=== PATIENT | male | born 1980 | race Caucasian/White ===

== ENCOUNTER → 2017-10-28 | Outpatient (CLI) | payer BC ==
[2017-10-28 07:22] LABS: BASOPHILS % 0.3 % (0.0-2.0); EOSINOPHILS % 3.5 % (0.0-5.0); HEMATOCRIT. 39.1 % (42.0-52.0); HEMOGLOBIN. 12.8 g/dL (14.0-18.0); LYMPHOCYTES % 27.7 % (20.0-50.0); MEAN CORPUSCULAR HEMOGLOBIN 21.7 pg (28.0-32.0); MEAN CORPUSCULAR VOLUME 66.4 fL (80.0-94.0); MEAN PLATELET VOLUME 9.1 fl (7.4-10.4); MONOCYTES % 7.2 % (2.0-8.0); NEUTROPHILS % 61.3 % (40.0-76.0); PLATELET 194 x1000/uL (130-400); RED BLOOD CELL COUNT 5.89 mill/uL (4.7-6.1); RED CELL DISTRIBUTION WIDTH 17.3 % (11.6-14.6)
[2017-10-28 07:56] LABS: CHLORIDE 105 mEq/L (98-107)
[2017-10-28 08:08] LABS: CARBON DIOXIDE 26 mEq/L (21-32); HDL CHOLESTEROL 35 mg/dL (40-59); LDL CHOLESTEROL 88 mg/dL (5-100); TOTAL IRON BINDING CAPACITY 406 ug/dL (250-450)
[2017-10-28 10:50] LABS: VITAMIN B12 SERUM 301 pg/mL (211-911)
[2017-10-28 11:03] LABS: PROSTRATE SPECIFIC AG TOTAL 1.01 ng/mL (0.0-4.0)
[2017-10-28 12:01] LABS: FERRITIN < 5 ng/mL (22-322)
[2017-10-29 16:04] LABS: PLATELET ESTIMATE NORMAL
== END | disposition home or self-care (01) ==
LOC: LAB 07:02
PROVIDERS: ATTEND Internal Medicine Geriatric Medicine
DX: Z00.01 Encounter for general adult medical examination with abnormal findings (principal)
CPT/HCPCS: 36415; 80053; 80061; 82306; 82607; 82728; 82746; 83036; 83540; 83550; 84153; 84443; 85025; 86592

== ENCOUNTER → 2020-05-14 | Outpatient (CLI) | payer BC ==
[2020-05-14 16:22] LABS: BASOPHILS % 1.2 % (0.0-2.0); EOSINOPHILS % 2.9 % (0.0-5.0); HEMATOCRIT. 40.3 % (42.0-52.0); HEMOGLOBIN. 13.3 g/dL (14.0-18.0); MEAN CORPUSCULAR HEMOGLOBIN 22.7 pg (28.0-32.0); MEAN CORPUSCULAR VOLUME 68.9 fL (80.0-94.0); MEAN PLATELET VOLUME 9.8 fl (7.4-10.4); MONOCYTES % 7.4 % (2.0-8.0); NEUTROPHILS % 66.5 % (40.0-76.0); PLATELET 222 x1000/uL (130-400); RED BLOOD CELL COUNT 5.86 mill/uL (4.7-6.1); RED CELL DISTRIBUTION WIDTH 17.9 % (11.6-14.6)
[2020-05-14 16:33] LABS: CLARITY URINE CLEAR (CLEAR); COLOR URINE YELLOW (YELLOW); KETONES URINE NEGATIVE (NEGATIVE); LEUKOCYTE ESTERASE URINE NEGATIVE (NEGATIVE); NITRITE URINE NEGATIVE (NEGATIVE); OCCULT BLOOD URINE NEGATIVE (NEGATIVE); PH URINE 6.5 (4.5-8.0); PROTEIN URINE NEGATIVE (NEGATIVE); SPECIFIC GRAVITY URINE 1.018 (1.005-1.030)
[2020-05-14 16:45] LABS: PLATELET ESTIMATE NORMAL
[2020-05-14 16:55] LABS: CHLORIDE 106 mEq/L (98-107)
[2020-05-14 17:01] LABS: TOTAL IRON BINDING CAPACITY 420 ug/dL (250-450)
[2020-05-14 17:03] LABS: HDL CHOLESTEROL 31 mg/dL (40-59)
[2020-05-14 17:04] LABS: LDL CHOLESTEROL 83 mg/dL (5-100)
[2020-05-14 17:14] LABS: FOLIC ACID (FOLATE) SERUM 14.2 ng/mL (>5.38)
== END | disposition home or self-care (01) ==
LOC: LAB 15:36
PROVIDERS: ATTEND Internal Medicine Geriatric Medicine
DX: Z00.01 Encounter for general adult medical examination with abnormal findings (principal); E11.40 Type 2 diabetes mellitus with diabetic neuropathy, unspecified; I10 Essential (primary) hypertension; E66.9 Obesity, unspecified; D50.9 Iron deficiency anemia, unspecified; N39.0 Urinary tract infection, site not specified; Z11.59 Encounter for screening for other viral diseases
CPT/HCPCS: 36415; 80053; 80061; 81003; 82306; 82607; 82728; 82746; 83036; 83540; 83550; 84153; 84443; 85025; 86592; G0103

== ENCOUNTER → 2020-05-30 | Outpatient (CLI) | payer BC | END | disposition home or self-care (01) | LOC: CARD 07:12 | PROVIDERS: ATTEND Internal Medicine Geriatric Medicine | DX: I10 Essential (primary) hypertension (principal); R60.9 Edema, unspecified | CPT/HCPCS: 93306 ==

== ENCOUNTER 2020-09-15 08:27 | Day surgery (SDC) | payer BC ==
[~2020-09-15] VITALS: Ht 172.7 cm; Wt 163.3 kg
[~2020-09-15 08:27] MED LIST: OLME1TAB82 PO
[2020-09-15] MEDS ORDERED: LACTATED RINGERS 1,000 ML IV SCH (09:00)
[2020-09-15 09:24] LABS: EOSINOPHILS % 3.3 % (0.0-5.0); HEMATOCRIT. 39.9 % (42.0-52.0); HEMOGLOBIN. 13.2 g/dL (14.0-18.0); LYMPHOCYTES % 28.6 % (20.0-50.0); MEAN CORPUSCULAR HEMOGLOBIN 23.6 pg (28.0-32.0); MEAN CORPUSCULAR VOLUME 71.3 fL (80.0-94.0); MEAN PLATELET VOLUME 9.9 fl (7.4-10.4); MONOCYTES % 6.6 % (2.0-8.0); NEUTROPHILS % 60.5 % (40.0-76.0); PLATELET 197 x1000/uL (130-400); RED BLOOD CELL COUNT 5.59 mill/uL (4.7-6.1); RED CELL DISTRIBUTION WIDTH 18.4 % (11.6-14.6)
[2020-09-15 09:55] LABS: CHLORIDE 114 mEq/L (98-107)
[2020-09-15] MEDS ORDERED: MIDAZOLAM HCL 5 MG/5 ML VIAL ONE (10:06)
[2020-09-15] MEDS ORDERED: LIDOCAINE HCL/PF 1% 10 MG/ML 5ML VIAL ONE (10:07)
[2020-09-15] MEDS ORDERED: PROPOFOL 10MG/ML 100ML 100 ML IV ONE (10:08)
[2020-09-15] MEDS ORDERED: PROPOFOL 200MG/20ML VIAL IV ONE (10:55)
[2020-09-15] MEDS ORDERED: KETAMINE HCL 50 MG/ML 10ML ONE (11:13)
== END 2020-09-15 12:50 | disposition home or self-care (01) ==
LOC: OR 08:27
PROVIDERS: ATTEND Internal Medicine Gastroenterology
DX: D50.9 Iron deficiency anemia, unspecified (principal); K44.9 Diaphragmatic hernia without obstruction or gangrene; K21.00 Gastro-esophageal reflux disease with esophagitis, without bleeding; K62.1 Rectal polyp; K29.50 Unspecified chronic gastritis without bleeding; K31.89 Other diseases of stomach and duodenum; K63.89 Other specified diseases of intestine; I10 Essential (primary) hypertension; Z87.891 Personal history of nicotine dependence; Z79.899 Other long term (current) drug therapy; Z98.84 Bariatric surgery status; Z98.890 Other specified postprocedural states
CPT/HCPCS: 36415; 43239; 45380; 80048; 85025; 88305; 88313; 93005; J2250; J2704; J3490; 88312

== ENCOUNTER → 2023-12-07 | Outpatient (CLI) | payer BC ==
[~2023-12-07] MED LIST changes: -OLME1TAB82 PO; +OLME1TAB88 PO
[2023-12-07 09:52] LABS: BASOPHILS % 1.2 % (0.0-2.0); EOSINOPHILS % 3.2 % (0.0-5.0); HEMATOCRIT. 36.8 % (42.0-52.0); HEMOGLOBIN. 11.6 g/dL (14.0-18.0); LYMPHOCYTES % 27.8 % (20.0-50.0); MEAN CORPUSCULAR HEMOGLOBIN 21.2 pg (28.0-32.0); MEAN CORPUSCULAR HGB CONC 31.4 g/dL (31.0-37.0); MEAN CORPUSCULAR VOLUME 67.5 fL (80.0-94.0); MEAN PLATELET VOLUME 9.4 fl (7.4-10.4); MONOCYTES % 6.5 % (2.0-8.0); NEUTROPHILS % 61.3 % (40.0-76.0); PLATELET 186 x1000/uL (130-400); RED BLOOD CELL COUNT 5.46 mill/uL (4.7-6.1); RED CELL DISTRIBUTION WIDTH 17.7 % (11.6-14.6); WHITE BLOOD COUNT 5.7 x1000/uL (4.5-11.0)
[2023-12-07 09:56] LABS: ADD RBC MORPHOLOGY YES; DIFFERENTIAL COMMENT 1
[2023-12-07 10:04] LABS: ALANINE AMINOTRANSFERASE 20 IU/L (10-49); ALBUMIN 4.1 g/dL (3.2-4.8); ASPARTATE AMINOTRANSFERASE 18 IU/L (<34); BILIRUBIN TOTAL 0.4 mg/dL (0.1-1.0); CALCIUM 8.7 mg/dL (8.7-10.4); CARBON DIOXIDE 30 mEq/L (21-32); CHLORIDE 103 mEq/L (98-107); CHOLESTEROL 99 mg/dL (<200); CREATININE 0.7 mg/dL (0.6-1.3); GLUCOSE 211 mg/dL (70-105); HDL CHOLESTEROL 21 mg/dL (>55); LDL CHOLESTEROL 81 mg/dL (5-100); POTASSIUM 3.9 mEq/L (3.5-5.1); PROTEIN TOTAL 6.7 g/dL (6.0-8.3); SODIUM 138 mEq/L (136-145); T4 FREE 0.99 ng/dL (0.89-1.76); THYROID STIMULATING HORMONE 2.68 uIU/mL (0.55-4.78); TRIGLYCERIDE 121 mg/dL (0-150); UREA NITROGEN BLOOD 11 mg/dL (9-23)
[2023-12-07 20:52] LABS: PLATELET ESTIMATE NORMAL
[2023-12-07 20:53] LABS: HYPOCHROMASIA 1+; MICROCYTOSIS 2+
== END | disposition home or self-care (01) ==
LOC: RAD 08:38
PROVIDERS: ATTEND Family Medicine Adult Medicine
DX: Z00.00 Encounter for general adult medical examination without abnormal findings (principal); S62.91XA Unspecified fracture of right hand, initial encounter for closed fracture; M47.816 Spondylosis without myelopathy or radiculopathy, lumbar region; E78.5 Hyperlipidemia, unspecified; I10 Essential (primary) hypertension; M25.78 Osteophyte, vertebrae; X58.XXXA Exposure to other specified factors, initial encounter; Y93.89 Activity, other specified; Y92.89 Other specified places as the place of occurrence of the external cause; Y99.8 Other external cause status
CPT/HCPCS: 36415; 72100; 73090; 73110; 80053; 80061; 83735; 84439; 84443; 84481; 85025

== ENCOUNTER → 2024-01-30 | Outpatient (CLI) | payer BC ==
[2024-01-30 10:44] LABS: BASOPHILS % 1.1 % (0.0-2.0); EOSINOPHILS % 2.7 % (0.0-5.0); HEMATOCRIT. 40.9 % (42.0-52.0); HEMOGLOBIN. 13.5 g/dL (14.0-18.0); MEAN CORPUSCULAR HEMOGLOBIN 22.3 pg (28.0-32.0); MEAN CORPUSCULAR VOLUME 67.5 fL (80.0-94.0); MONOCYTES % 6.3 % (2.0-8.0); NEUTROPHILS % 63.9 % (40.0-76.0); PLATELET 274 x1000/uL (130-400); RED BLOOD CELL COUNT 6.06 mill/uL (4.7-6.1); RED CELL DISTRIBUTION WIDTH 18.1 % (11.6-14.6); WHITE BLOOD COUNT 8.2 x1000/uL (4.5-11.0)
[2024-01-30 10:49] LABS: CLARITY URINE CLEAR (CLEAR); COLOR URINE YELLOW (YELLOW); GLUCOSE URINE NEGATIVE (NEGATIVE); KETONES URINE 1+ (NEGATIVE); LEUKOCYTE ESTERASE URINE NEGATIVE (NEGATIVE); NITRITE URINE NEGATIVE (NEGATIVE); OCCULT BLOOD URINE NEGATIVE (NEGATIVE); PROTEIN URINE TRACE (NEGATIVE); SPECIFIC GRAVITY URINE 1.026 (1.005-1.030)
[2024-01-30 10:58] LABS: ADD RBC MORPHOLOGY YES; DIFFERENTIAL COMMENT 1
[2024-01-30 11:01] LABS: BACTERIA URINE NONE SEEN; RBC URINE 0-2 /hpf (0-2); SQUAMOUS EPITHELIAL CELL URINE 1+ /lpf (RARE/1+); WBC URINE 0-2 /hpf (0-2); YEAST URINE NONE SEEN
[2024-01-30 11:17] LABS: ALANINE AMINOTRANSFERASE 29 IU/L (10-49); ALBUMIN 5.1 g/dL (3.2-4.8); ASPARTATE AMINOTRANSFERASE 29 IU/L (<34); BILIRUBIN TOTAL 0.6 mg/dL (0.1-1.0); CALCIUM 9.1 mg/dL (8.7-10.4); CARBON DIOXIDE 29 mEq/L (21-32); CHLORIDE 102 mEq/L (98-107); CHOLESTEROL 146 mg/dL (<200); CREATININE 0.9 mg/dL (0.6-1.3); GLUCOSE 127 mg/dL (70-105); HDL CHOLESTEROL 28 mg/dL (>55); IRON 63 ug/dL (65-175); LDL CHOLESTEROL 102 mg/dL (5-100); POTASSIUM 3.6 mEq/L (3.5-5.1); SODIUM 137 mEq/L (136-145); THYROID STIMULATING HORMONE 2.04 uIU/mL (0.55-4.78); TOTAL IRON BINDING CAPACITY 341 ug/dl (250-425); TRIGLYCERIDE 125 mg/dL (0-150); UREA NITROGEN BLOOD 20 mg/dL (9-23)
[2024-01-30 11:27] LABS: PROTEIN TOTAL 9.1 g/dL (6.0-8.3)
[2024-01-30 11:32] LABS: FERRITIN 5 ng/mL (22-322); FOLIC ACID (FOLATE) SERUM > 20.00 ng/mL (>5.38); VITAMIN B12 SERUM 426 pg/mL (211-911)
[2024-01-30 13:52] LABS: ANISOCYTOSIS 2+; MICROCYTOSIS 2+; PLATELET ESTIMATE NORMAL
[2024-01-31 14:08] LABS: MICROALBUMIN RANDOM URINE 40.6 ug/mL (Not Estab.)
== END | disposition home or self-care (01) ==
LOC: LAB 08:49
PROVIDERS: ATTEND Internal Medicine Geriatric Medicine
DX: Z00.01 Encounter for general adult medical examination with abnormal findings (principal); E11.40 Type 2 diabetes mellitus with diabetic neuropathy, unspecified; I10 Essential (primary) hypertension; D50.0 Iron deficiency anemia secondary to blood loss (chronic); N39.0 Urinary tract infection, site not specified
CPT/HCPCS: 36415; 80053; 80061; 81003; 82043; 82306; 82570; 82607; 82728; 82746; 83036; 83540; 83550; 84443; 85025; 86592; 86900

== ENCOUNTER → 2024-05-29 | Outpatient (CLI) | payer BC ==
[2024-05-29 09:06] LABS: CHLORIDE 107 mEq/L (98-107); POTASSIUM 3.8 mEq/L (3.5-5.1); SODIUM 139 mEq/L (136-145)
[2024-05-29 09:07] LABS: CALCIUM 8.6 mg/dL (8.7-10.4); CARBON DIOXIDE 28 mEq/L (21-32)
[2024-05-29 09:12] LABS: CREATININE 0.8 mg/dL (0.6-1.3); GLUCOSE 108 mg/dL (70-105); URIC ACID 5.2 mg/dL (3.7-9.2)
[2024-05-29 09:13] LABS: LDL CHOLESTEROL 79 mg/dL (5-100); TRIGLYCERIDE 98 mg/dL (0-150); UREA NITROGEN BLOOD 17 mg/dL (9-23)
[2024-05-29 09:14] LABS: ALANINE AMINOTRANSFERASE 20 IU/L (10-49); ALBUMIN 4.2 g/dL (3.2-4.8); ASPARTATE AMINOTRANSFERASE 18 IU/L (<34); CHOLESTEROL 114 mg/dL (<200); HDL CHOLESTEROL 26 mg/dL (>55)
[2024-05-29 09:15] LABS: BILIRUBIN TOTAL 0.4 mg/dL (0.1-1.0)
[2024-05-29 09:17] LABS: FOLIC ACID (FOLATE) SERUM > 20.00 ng/mL (>5.38); THYROID STIMULATING HORMONE 2.24 uIU/mL (0.55-4.78)
== END | disposition home or self-care (01) ==
LOC: LAB 08:06
PROVIDERS: ATTEND Internal Medicine Geriatric Medicine
DX: I10 Essential (primary) hypertension (principal); E11.69 Type 2 diabetes mellitus with other specified complication; E78.5 Hyperlipidemia, unspecified
CPT/HCPCS: 36415; 80053; 80061; 82746; 83036; 84443; 84550

== ENCOUNTER → 2024-08-28 | Outpatient (CLI) | payer BC ==
[~2024-08-28] MED LIST changes: +OLME-23 PO; -OLME1TAB88 PO
[2024-08-28 08:47] LABS: CHLORIDE 108 mEq/L (98-107); POTASSIUM 3.9 mEq/L (3.5-5.1); SODIUM 140 mEq/L (136-145)
[2024-08-28 08:48] LABS: CALCIUM 8.7 mg/dL (8.7-10.4); CARBON DIOXIDE 29 mEq/L (21-32)
[2024-08-28 09:22] LABS: FOLIC ACID (FOLATE) SERUM 15.9 ng/mL (>5.38)
[2024-08-28 13:06] LABS: IRON 29 ug/dL (65-175)
[2024-08-28 13:07] LABS: CREATININE 0.9 mg/dL (0.6-1.3); GLUCOSE 110 mg/dL (70-105); TRIGLYCERIDE 68 mg/dL (0-150); UREA NITROGEN BLOOD 13 mg/dL (9-23)
[2024-08-28 13:08] LABS: LDL CHOLESTEROL 86 mg/dL (5-100)
[2024-08-28 13:09] LABS: ALANINE AMINOTRANSFERASE 17 IU/L (10-49); ASPARTATE AMINOTRANSFERASE 19 IU/L (<34); BILIRUBIN TOTAL 0.5 mg/dL (0.1-1.0); CHOLESTEROL 119 mg/dL (<200); HDL CHOLESTEROL 32 mg/dL (>55); TOTAL IRON BINDING CAPACITY 364 ug/dl (250-425)
[2024-08-28 13:11] LABS: THYROID STIMULATING HORMONE 2.01 uIU/mL (0.55-4.78)
== END | disposition home or self-care (01) ==
LOC: LAB 08:03
PROVIDERS: ATTEND Nurse Practitioner Family
DX: I10 Essential (primary) hypertension (principal); E11.69 Type 2 diabetes mellitus with other specified complication; D50.9 Iron deficiency anemia, unspecified
CPT/HCPCS: 36415; 80053; 80061; 82746; 83036; 83540; 83550; 84443

== ENCOUNTER → 2024-10-06 | Outpatient (CLI) | payer BC ==
[2024-10-06 16:32] LABS: ADD RBC MORPHOLOGY YES; BASOPHILS % 1.1 % (0.0-2.0); DIFFERENTIAL COMMENT 1; EOSINOPHILS % 2.5 % (0.0-5.0); HEMATOCRIT. 29.3 % (42.0-52.0); HEMOGLOBIN. 9.5 g/dL (14.0-18.0); LYMPHOCYTES % 26.1 % (20.0-50.0); MEAN CORPUSCULAR HEMOGLOBIN 20.7 pg (28.0-32.0); MEAN CORPUSCULAR HGB CONC 32.3 g/dL (31.0-37.0); MEAN CORPUSCULAR VOLUME 64.1 fL (80.0-94.0); MEAN PLATELET VOLUME 8.4 fl (7.4-10.4); MONOCYTES % 5.9 % (2.0-8.0); NEUTROPHILS % 64.4 % (40.0-76.0); PLATELET 179 x1000/uL (130-400); RED BLOOD CELL COUNT 4.58 mill/uL (4.7-6.1); RED CELL DISTRIBUTION WIDTH 16.6 % (11.6-14.6); WHITE BLOOD COUNT 6.7 x1000/uL (4.5-11.0)
[2024-10-06 16:43] LABS: ANISOCYTOSIS 1+; HYPOCHROMASIA 2+; MICROCYTOSIS 3+; PLATELET ESTIMATE NORMAL
== END | disposition home or self-care (01) ==
LOC: LAB 09:18
PROVIDERS: ATTEND Internal Medicine Geriatric Medicine
DX: D50.9 Iron deficiency anemia, unspecified (principal)
CPT/HCPCS: 36415; 85025

== ENCOUNTER → 2025-03-22 | Outpatient (CLI) | payer BC ==
[2025-03-22 10:41] LABS: EOSINOPHILS % 4.2 % (0.0-5.0); HEMATOCRIT. 32.4 % (42.0-52.0); HEMOGLOBIN. 9.9 g/dL (14.0-18.0); MEAN CORPUSCULAR HEMOGLOBIN 17.7 pg (28.0-32.0); MEAN CORPUSCULAR HGB CONC 30.5 g/dL (31.0-37.0); MEAN CORPUSCULAR VOLUME 57.8 fL (80.0-94.0); MEAN PLATELET VOLUME 8.7 fl (7.4-10.4); MONOCYTES % 8.8 % (2.0-8.0); PLATELET 216 x1000/uL (130-400); RED CELL DISTRIBUTION WIDTH 19.3 % (11.6-14.6); WHITE BLOOD COUNT 5.3 x1000/uL (4.5-11.0)
[2025-03-22 10:45] LABS: CHLORIDE 106 mEq/L (98-107); POTASSIUM 4.3 mEq/L (3.5-5.1); SODIUM 141 mEq/L (136-145)
[2025-03-22 10:46] LABS: CALCIUM 8.9 mg/dL (8.7-10.4); CARBON DIOXIDE 29 mEq/L (21-32)
[2025-03-22 10:50] LABS: ADD RBC MORPHOLOGY YES; DIFFERENTIAL COMMENT 1; IRON 20 ug/dL (65-175)
[2025-03-22 10:51] LABS: CREATININE 0.9 mg/dL (0.6-1.3); GLUCOSE 122 mg/dL (70-105); TRIGLYCERIDE 75 mg/dL (0-150); UREA NITROGEN BLOOD 13 mg/dL (9-23)
[2025-03-22 10:52] LABS: LDL CHOLESTEROL 79 mg/dL (5-100)
[2025-03-22 10:53] LABS: ALANINE AMINOTRANSFERASE 17 IU/L (10-49); ALBUMIN 4.3 g/dL (3.2-4.8); ASPARTATE AMINOTRANSFERASE 19 IU/L (<34); BILIRUBIN TOTAL 0.5 mg/dL (0.1-1.0); CHOLESTEROL 116 mg/dL (<200); HDL CHOLESTEROL 34 mg/dL (>55); PROTEIN TOTAL 7.5 g/dL (6.0-8.3); TOTAL IRON BINDING CAPACITY 386 ug/dl (250-425)
[2025-03-22 10:55] LABS: THYROID STIMULATING HORMONE 1.86 uIU/mL (0.55-4.78)
[2025-03-22 13:23] LABS: VITAMIN B12 SERUM 330 pg/mL (211-911)
[2025-03-22 13:33] LABS: FERRITIN 3 ng/mL (22-322)
[2025-03-22 14:03] LABS: ANISOCYTOSIS 2+; PLATELET ESTIMATE NORMAL
[2025-03-22 14:04] LABS: HYPOCHROMASIA 2+; MICROCYTOSIS 3+
== END | disposition home or self-care (01) ==
LOC: LAB 08:50
PROVIDERS: ATTEND Internal Medicine Geriatric Medicine
DX: E11.69 Type 2 diabetes mellitus with other specified complication (principal)
CPT/HCPCS: 36415; 80053; 80061; 82607; 82728; 83036; 83540; 83550; 84443; 85025

== ENCOUNTER → 2025-06-21 | Outpatient (CLI) | payer BC ==
[2025-06-21 09:07] LABS: BASOPHILS % 1.4 % (0.0-2.0); EOSINOPHILS % 3.5 % (0.0-5.0); HEMATOCRIT. 31.3 % (42.0-52.0); HEMOGLOBIN. 9.6 g/dL (14.0-18.0); LYMPHOCYTES % 26.9 % (20.0-50.0); MEAN PLATELET VOLUME 9.4 fl (7.4-10.4); MONOCYTES % 7.2 % (2.0-8.0); NEUTROPHILS % 61.0 % (40.0-76.0); PLATELET 180 x1000/uL (130-400); RED BLOOD CELL COUNT 5.43 mill/uL (4.7-6.1); RED CELL DISTRIBUTION WIDTH 19.3 % (11.6-14.6)
[2025-06-21 09:09] LABS: ADD RBC MORPHOLOGY YES
[2025-06-21 09:19] LABS: CREATININE 0.8 mg/dL (0.6-1.3)
[2025-06-21 09:20] LABS: UREA NITROGEN BLOOD 15 mg/dL (9-23)
[2025-06-21 09:21] LABS: ASPARTATE AMINOTRANSFERASE 15 IU/L (<34)
[2025-06-21 09:22] LABS: BILIRUBIN TOTAL 0.6 mg/dL (0.1-1.0); PROTEIN TOTAL 6.9 g/dL (6.0-8.3)
[2025-06-21 09:33] LABS: FOLIC ACID (FOLATE) SERUM 16.42 ng/mL (>5.38); VITAMIN B12 SERUM 841 pg/mL (211-911)
[2025-06-21 10:07] LABS: PLATELET ESTIMATE NORMAL
== END | disposition home or self-care (01) ==
LOC: LAB 08:38
PROVIDERS: ATTEND Internal Medicine Geriatric Medicine
DX: E11.69 Type 2 diabetes mellitus with other specified complication (principal); E78.5 Hyperlipidemia, unspecified
CPT/HCPCS: 36415; 80053; 82607; 82728; 82746; 83036; 83540; 83550; 85025

== ENCOUNTER → 2025-08-19 | Outpatient (CLI) | payer BC ==
[2025-08-19 09:41] LABS: CREATININE 0.8 mg/dL (0.6-1.3); TRIGLYCERIDE 91 mg/dL (0-150); UREA NITROGEN BLOOD 12 mg/dL (9-23)
[2025-08-19 09:42] LABS: LDL CHOLESTEROL 90 mg/dL (5-100)
[2025-08-19 09:43] LABS: ASPARTATE AMINOTRANSFERASE 17 IU/L (<34); BILIRUBIN TOTAL 0.3 mg/dL (0.1-1.0); PROTEIN TOTAL 6.8 g/dL (6.0-8.3)
[2025-08-20 06:13] LABS: CARCINOEMBRYONIC AG - SEND OUT 0.7 ng/mL (0.0-4.7)
[2025-08-20 08:08] LABS: PROSTATE SPECIFIC AG TOTAL 1.0 ng/mL (0.0-4.0)
== END | disposition home or self-care (01) ==
LOC: LAB 08:39
PROVIDERS: ATTEND Internal Medicine Geriatric Medicine
DX: I10 Essential (primary) hypertension (principal); D50.9 Iron deficiency anemia, unspecified; Z79.899 Other long term (current) drug therapy
CPT/HCPCS: 36415; 80053; 80061; 82378; 82728; 83036; 83540; 83550; 84153; 84443